=== PATIENT | female | born 1960 | race Caucasian/White ===

== ENCOUNTER 2021-06-10 12:35 | Emergency (ER) | payer OTHER ==
[~2021-06-10] VITALS: Ht 162.6 cm; Wt 85.7 kg
[2021-06-10] MEDS ORDERED: PROAIR HFA8.5 GM INH (12:42)
[2021-06-10] MEDS ORDERED: DOXYCYCLINE 10100 MG PO (14:02)
[2021-06-10 14:15] VITALS: BP 141/78
== END 2021-06-10 14:17 | disposition home or self-care (01) ==
LOC: M.ERS 12:35
DX: L03.011 Cellulitis of right finger (principal); J45.909 Unspecified asthma, uncomplicated; Z79.899 Other long term (current) drug therapy; Z88.0 Allergy status to penicillin